=== PATIENT | male | born 1960 | race African-American/Black ===

== ENCOUNTER 2019-04-30 04:58 | Emergency (ER) | payer MEDICARE, MEDICAID ==
[~2019-04-30] VITALS: Ht 182.9 cm; Wt 100.0 kg
[2019-04-30] MEDS ORDERED: ACETAMINOPHEN WITH CODEINE 300/30MG TABLET PO ONE (06:15)
[2019-04-30 08:21] VITALS: BP 131/80
== END 2019-04-30 09:40 | disposition home or self-care (01) ==
LOC: ER 04:58
DX: S09.8XXA Other specified injuries of head, initial encounter (principal); S10.93XA Contusion of unspecified part of neck, initial encounter; I10 Essential (primary) hypertension; Z98.890 Other specified postprocedural states; Y04.0XXA Assault by unarmed brawl or fight, initial encounter; Y93.89 Activity, other specified; Y92.488 Other paved roadways as the place of occurrence of the external cause
CPT/HCPCS: 99284